=== PATIENT | female | born 1940 | race Hispanic/Latino ===

== ENCOUNTER 2019-10-09 09:23 | Emergency (ER) | payer OTHER ==
[~2019-10-09] VITALS: Ht 167.6 cm; Wt 77.1 kg
[2019-10-09 10:19] LABS: BASOPHILS # (AUTO) 0.1 (0.0-0.1); BASOPHILS % 0.7 % (0.0-1.0); EOSINOPHILS # (AUTO) 0.1 (0.0-0.4); EOSINOPHILS % 0.6 % (0.0-6.0); HEMATOCRIT 44.9 % (34.2-44.1); LYMPHOCYTES # (AUTO) 1.8 (1.0-3.2); LYMPHOCYTES % 21.6 % (18.0-39.1); MEAN CORPUSCULAR HEMOGLOBIN 29.3 pg (28-32); MEAN CORPUSCULAR HGB CONC 33.4 g/dL (31-35); MEAN CORPUSCULAR VOLUME 87.7 fL (81-99); MONOCYTES # (AUTO) 1.4 (0.2-0.8); MONOCYTES % 16.8 % (4.4-11.3); NEUTROPHILS % 59.3 % (38.7-80.0); PLATELET COUNT 242 x10e3/uL (140-360); RED BLOOD COUNT 5.12 x10e6/uL (3.6-5.1); RED CELL DISTRIBUTION WIDTH 13.4 % (11.7-14.4)
[2019-10-09] MEDS: SODIUM CHLORIDE 0.9% 500ML 500 ML IV ONE ×2 (10:27→11:15)
[2019-10-09 10:30] LABS: INR 1.37; PROTHROMBIN TIME 17.5 seconds (11.9-14.5)
[2019-10-09 10:31] LABS: PARTIAL THROMBOPLASTIN TIME 34.9 seconds (23.8-35.5)
[2019-10-09 10:34] LABS: BILIRUBIN,URINE SMALL (NEGATIVE); CLARITY,URINE CLEAR (CLEAR); COLOR,URINE YELLOW (YELLOW); KETONES,URINE TRACE (NEGATIVE); LEUKOCYTE ESTERASE ,URINE NEGATIVE (NEGATIVE); NITRITE,URINE NEGATIVE (NEGATIVE); PROTEIN,URINE DIPSTICK TRACE (NEGATIVE); URINE UROBILINOGEN 1 mg/dL (0.2 - 1)
[2019-10-09 10:41] LABS: ALBUMIN 3.6 g/dL (3.5-5.0); ALBUMIN/GLOBULIN RATIO 0.9 (0.8-2.0); ANION GAP 15.1 mmol/L (8-16); CALCIUM 9.2 mg/dL (8.4-10.2); CREATININE, SERUM 0.94 mg/dL (0.57-1.11); MAGNESIUM 1.7 MG/DL (1.3-2.1); POTASSIUM 4.1 mmol/L (3.5-5.1)
[2019-10-09 10:43] LABS: STREPTOCOCCUS GRP A ANTIGEN POSITIVE (NEGATIVE)
[2019-10-09 10:47] LABS: CREATINE KINASE MB 1.6 ng/mL (0-5.0)
[2019-10-09 10:53] LABS: INFLUENZAE A&B ANTIGEN (RAPID) POSITIVE FLU A (NEGATIVE)
[2019-10-09 10:59] LABS: BACTERIA,URINE MODERATE /HPF; EPITHELIAL CELLS,URINE FEW /LPF; RBC,URINE 0-5 /HPF (0-5); WBC,URINE (MAN) 0-5 /HPF (0-5)
[2019-10-09 11:11] LABS: B-TYPE NATRIURETIC PEPTIDE2 405.3 pg/mL (0-100)
--- NOTE | 2019-10-09 11:37 | Diagnostic Imaging Report ---
EXAMINATION: CHEST 2 VIEWS INDICATION: Cough COMPARISON: None FINDINGS: LINES/TUBES:EKG leads overlie the chest. LUNGS:The lungs are well-inflated. No focal consolidation or pulmonary edema. PLEURA:No pleural effusion or pneumothorax. MEDIASTINUM:The cardiomediastinal silhouette appears normal in size and shape. BONES/SOFT TISSUES:No acute osseous injury. ABDOMEN:No free air under the diaphragm. Surgical clips project over the left upper quadrant and expected location of the gastroesophageal junction. IMPRESSION: No focal pneumonia or pulmonary edema. Signed by: Truong Singh MD on 10/09/2019 11:34 AM
--- NOTE | 2019-10-09 11:40 | NUR ---
REC'D REPORT IN WALKING ROUNDS WITH MANISH MONACO FOR CONTUNUITY OF CARE.
--- NOTE | 2019-10-09 13:50 | NUR ---
DR. SCHAEFER UPDATED PT RE DC
[2019-10-09 13:52] VITALS: BP 142/94
--- NOTE | 2019-10-09 14:28 | NUR ---
FAMILY WAS CALLED TO COME AND P-UP PT. ETA APPROX. 30 MIN.
== END 2019-10-09 15:11 | disposition home or self-care (01) ==
LOC: ER 09:29
DX: R50.9 Fever, unspecified (principal); R05 Cough; J09.X2 Influenza due to identified novel influenza A virus with other respiratory manifestations
CPT/HCPCS: 36415; 71046; 80053; 81001; 82550; 82553; 83518; 83605; 83735; 83880; 84484; 85025; 85610; 85730; 87040; 87086; 87400; 93005; 99284; J7040

== ENCOUNTER 2019-10-22 12:29 | Emergency (ER) | payer OTHER ==
[~2019-10-22] VITALS: Ht 167.6 cm; Wt 77.1 kg
--- OUTSIDE RECORDS SUMMARY | 2019-10-22 12:31 | XMS REPORT ---
Author Author [facility] Address Unknown Phone Unavailable Care Team Providers Care Hog Cutter Name Role Phone Armin SCHAEFER Unavailable Unavailable Problems This patient has no known problems. Allergies, Adverse Reactions, Alerts This patient has no known allergies or adverse reactions. Medications This patient has no known medications. Results Test Description Test Time Test Comments Text Results Atomic Results Result Comments CHEST 2 VIEWS 2019-10-09 11:33:00 [place] [address] Patient Name: KERMIT YEAGER MR #: [id number] : 1940 Age/Sex: 79/F Req #: [id number] Adm Physician: Ordered by: ADALI SCHAEFER MD Report #: [id number] Location: ER Room/Bed: Procedure: [id number] DX/CHEST 2 VIEWS Exam Date: 10/09/19 Exam Time: 1110 REPORT STATUS: Signed EXAMINATION: CHEST 2 VIEWS INDICATION: Cough CO MPARISON: None FINDINGS: LINES/TUBES:EKG leads overlie the chest. LUNGS:The lungs are well-inflated. No focal consolidation or pulmonary edema. PLEURA:No pleural effusion or pneumothorax. MEDIASTINUM:The cardiomediastinal silhouette appears normal in size and shape. BONES/SOFT TISSUES:No acute osseous injury. ABDOMEN:No free air under the diaphragm. Surgical clips project over the left upper quadrant and expected location of the gastroesophageal junction. IMPRESSION: No focal pneumonia or pulmonary edema. Signed by: Funmilayo Singh MD on 10/09/2019 11:34 AM Dictated By: FUNMILAYO SINGH MD [id number] Transcribed By: PAGE on 10/09/19 113 COPY TO: ADALI SCHAEFER MD
== END 2019-10-22 14:00 | disposition home or self-care (01) ==
LOC: ER 12:29
DX: I95.9 Hypotension, unspecified (principal)
CPT/HCPCS: 93005; 99282

== ENCOUNTER 2023-02-08 20:39 | Emergency (ER) | payer MEDICARE, OTHER ==
[~2023-02-08] VITALS: Ht 167.6 cm; Wt 77.1 kg
[2023-02-08 21:13] LABS: BASOPHILS # (AUTO) 0.1 (0.0-0.1); BASOPHILS % 0.8 % (0.0-1.0); EOSINOPHILS # (AUTO) 0.3 (0.0-0.4); EOSINOPHILS % 3.3 % (0.0-6.0); HEMATOCRIT 43.8 % (34.2-44.1); HEMOGLOBIN 13.9 g/dL (12.0-16.0); LYMPHOCYTES % 23.1 % (18.0-39.1); MEAN CORPUSCULAR HEMOGLOBIN 29.3 pg (28-32); MEAN CORPUSCULAR HGB CONC 31.7 g/dL (31-35); MEAN CORPUSCULAR VOLUME 92.2 fL (81-99); MONOCYTES # (AUTO) 0.8 (0.2-0.8); MONOCYTES % 9.1 % (4.4-11.3); NEUTROPHILS # (AUTO) 5.5 (2.1-6.9); NEUTROPHILS % 63.1 % (38.7-80.0); PLATELET COUNT 212 x10e3/uL (140-360); RED BLOOD COUNT 4.75 x10e6/uL (3.6-5.1); RED CELL DISTRIBUTION WIDTH 13.8 % (11.7-14.4)
[2023-02-08 21:30] LABS: ALBUMIN 3.5 g/dL (3.5-5.0); CALCIUM 8.8 mg/dL (8.4-10.2); CREATININE, SERUM 0.95 mg/dL (0.57-1.11)
[2023-02-08 21:36] LABS: CREATINE KINASE MB 1.2 ng/mL (0-5.0)
[2023-02-08 22:32] LABS: AMPHETAMINES SCREEN,URINE NEGATIVE (NEGATIVE); BENZODIAZEPINES SCREEN,URINE NEGATIVE (NEGATIVE); PHENCYCLIDINE SCREEN,URINE NEGATIVE (NEGATIVE)
[2023-02-09 00:44] VITALS: BP 161/70
== END 2023-02-09 00:45 | disposition home or self-care (01) ==
LOC: ER 21:08
DX: R06.02 Shortness of breath (principal); R07.9 Chest pain, unspecified
CPT/HCPCS: 36415; 71045; 80053; 80307; 82550; 82553; 82948; 83690; 83880; 84484; 85025; 85379; 93005; 99284

== ENCOUNTER 2023-04-16 10:26 | Emergency (ER) | payer MEDICARE ==
[~2023-04-16] VITALS: Ht 154.9 cm; Wt 73.9 kg
[2023-04-16] MEDS ORDERED: PROVENTIL HFA6.7 GM INH (11:06)
[2023-04-16] MEDS ORDERED: NEURONTIN100 MG PO (11:06)
[2023-04-16] MEDS ORDERED: WARFARIN SODIU2.5 MG PO (11:06)
[2023-04-16] MEDS ORDERED: DOXEPIN HCL25 MG PO (11:06)
[2023-04-16] MEDS ORDERED: CARVEDILOL12.5 MG PO (11:06)
[2023-04-16] MEDS ORDERED: OLMESARTAN MEDO20 MG (11:06)
[2023-04-16] MEDS ORDERED: BUMETANIDE1 MG PO (11:06)
[2023-04-16] MEDS ORDERED: BENZONATATE200 MG PO (11:06)
[2023-04-16] MEDS ORDERED: ESCITALOPRAM OX20 MG (11:06)
[2023-04-16] MEDS ORDERED: OXYBUTYNIN CHLOR5 MG PO (11:06)
[2023-04-16] MEDS ORDERED: MAGNESIUM OXID400 MG PO (11:06)
[2023-04-16] MEDS ORDERED: METFORMIN HCL500 M2 PO (11:06)
[2023-04-16 12:15] VITALS: O2SAT 96
[2023-04-16] MEDS ORDERED: ULTRAM 50MG50 MG PO (12:59)
[2023-04-16] MEDS ORDERED: GABAPENTIN100 MG PO (13:02)
== END 2023-04-16 13:19 | disposition home or self-care (01) ==
LOC: FSED 10:34
DX: S20.224A Contusion of middle back wall of thorax, initial encounter (principal); W18.12XA Fall from or off toilet with subsequent striking against object, initial encounter; J90 Pleural effusion, not elsewhere classified; I11.0 Hypertensive heart disease with heart failure; I50.9 Heart failure, unspecified; I48.91 Unspecified atrial fibrillation; E11.9 Type 2 diabetes mellitus without complications; Z79.01 Long term (current) use of anticoagulants; J45.909 Unspecified asthma, uncomplicated; R41.3 Other amnesia; I25.10 Atherosclerotic heart disease of native coronary artery without angina pectoris; Z79.84 Long term (current) use of oral hypoglycemic drugs; Z79.899 Other long term (current) drug therapy; Z86.73 Personal history of transient ischemic attack (TIA), and cerebral infarction without residual deficits
CPT/HCPCS: 72128; 72131; 99283